=== PATIENT | male | born 1985 | race Two or more races ===

== ENCOUNTER 2023-03-04 12:44 | Emergency (ER) | payer OTHER ==
[~2023-03-04] VITALS: Ht 193 cm; Wt 90.0 kg
[2023-03-04 12:45] VITALS: TEMP 97.8
[2023-03-04] MEDS ORDERED: HYDROCODONE/ACETAMINOPHEN 5-325 MG TABLET PO ONE (13:15)
[2023-03-04 13:32] VITALS: BP 147/94; PULSE 98; RESP 18
== END 2023-03-04 13:33 | disposition home or self-care (01) ==
LOC: EMS 12:56
DX: K02.9 Dental caries, unspecified (principal); K13.79 Other lesions of oral mucosa
CPT/HCPCS: 99283

== ENCOUNTER 2023-04-02 06:10 | Emergency (ER) | payer OTHER ==
[~2023-04-02] VITALS: Ht 193 cm; Wt 88.6 kg
[2023-04-02 06:14] VITALS: TEMP 98.2
[2023-04-02] MEDS ORDERED: OxyCODONE HCL/ACETAMINOPHEN 5-325 MG TABLET PO ONE (08:15)
[2023-04-02] MEDS ORDERED: PENICILLIN V POTASSIUM 500 MG TABLET PO ONE (08:15)
[2023-04-02] MEDS ORDERED: PENI500T2 PO (08:16)
[2023-04-02 09:13] VITALS: BP 152/96; PULSE 84; RESP 18
[2023-04-02] MEDS: KETOROLAC TROMETHAMINE 60 MG/2 ML VIAL IM ONE ×2 (09:22→09:27)
== END 2023-04-02 09:28 | disposition home or self-care (01) ==
LOC: EMS 06:11
DX: K02.9 Dental caries, unspecified (principal); F17.210 Nicotine dependence, cigarettes, uncomplicated
CPT/HCPCS: 99283; J1885

== ENCOUNTER 2024-09-27 03:51 | Emergency (ER) | payer OTHER ==
[~2024-09-27] VITALS: Ht 193 cm; Wt 87.3 kg
[~2024-09-27 03:51] MED LIST: PENI500T2 PO
[2024-09-27 03:55] VITALS: BP 155/74; PULSE 105; RESP 16; TEMP 98.5; O2SAT 99
[2024-09-27 04:10] LABS: COVID AG,FIA SOURCE NASAL SWAB
[2024-09-27 04:30] LABS: INFLUENZA TYPE A NEGATIVE FOR TYPE A (NEGATIVE); INFLUENZA TYPE B NEGATIVE FOR TYPE B (NEGATIVE); SARS-COV2 (COVID) ANTIGEN,FIA Negative (Negative)
[2024-09-27] MEDS ORDERED: BENZ-227 PO (04:51)
[2024-09-27] MEDS ORDERED: ACET-3385 PO (04:51)
[2024-09-27] MEDS ORDERED: IBUP-1492 PO (04:51)
[2024-09-27] MEDS: ACETAMINOPHEN 500 MG TABLET PO ONE (06:24)
[2024-09-27] MEDS: BENZONATATE 100 MG CAPSULE PO ONE (06:24)
[2024-09-27] MEDS: ALBUTEROL SULFATE HFA 90 MCG/PUFF 8 GM INHALER IH ONE (06:24)
== END 2024-09-27 06:25 | disposition home or self-care (01) ==
LOC: EMS 03:51
DX: B34.9 Viral infection, unspecified (principal); R05.9 Cough, unspecified; Z20.822 Contact with and (suspected) exposure to COVID-19
CPT/HCPCS: 99283; 87426; 87430; 87804; J3535